=== PATIENT | female | born 1980 | race Caucasian/White ===

== ENCOUNTER 2017-04-01 12:46 | Emergency (ER) | payer BC, OTHER ==
[2017-04-01 12:57] VITALS: RESP 18; TEMP 99; O2SAT 99
[2017-04-01] MEDS ORDERED: Sodium Chloride 0.9% 1,000 ML IV STA (13:31)
[2017-04-01 14:01] LABS: BASO % 0.8 % (0.0-2.0); EOS # 0.1 K/uL (0.0-0.7); EOS % 1.8 % (0.0-4.0); HEMOGLOBIN 12.3 g/dL (12.0-16.0); LYMPH # 1.8 K/uL (1.0-4.3); LYMPH % 35.3 % (20.0-40.0); MEAN CELL VOLUME 88.6 fl (81.0-99.0); MEAN CORPUSCULAR HEMOGLOBIN 29.7 pg (27.0-31.0); MEAN CORPUSCULAR HGB CONC 33.5 g/dL (33.0-37.0); MEAN PLATELET VOLUME 8.5 fl (7.2-11.7); MONO # 0.3 K/uL (0.0-0.8); MONO % 6.8 % (0.0-10.0); NEUT # 2.8 K/uL (1.8-7.0); NEUT % 55.3 % (50.0-75.0); NRBC % 0.3 % (0.0-0.0); RBC 4.15 Mil/uL (3.80-5.20); RED CELL DISTRIBUTION WIDTH 13.5 % (11.5-14.5); WHITE BLOOD COUNT 5.1 K/uL (4.8-10.8)
--- NOTE | 2017-04-01 14:02 | ED PDOC ---
HPI: Chest Pain Time Seen by Provider: 04/01/17 13:12 Chief Complaint (Nursing): Chest Pain Chief Complaint (Provider): left sided chest pain History Per: Patient History/Exam Limitations: no limitations Onset/Duration Of Symptoms: Days (x 3) Additional Complaint(s): Ade Trejo is a 36 year old female, with a previous medical history of hypercholesterolemia, who presents to the ED with complaints of left sided chest pain associated with dyspnea, lightheadedness and pain with deep inspiration constantly ongoing for 3 days. She denies any calf pain, leg swelling, far traveling or hormone treatments. No fever, cough, runny nose, headaches. No vision changes. Has had similar multiple times in the past. PMD: none provided Past Medical History Reviewed: Historical Data, Nursing Documentation, Vital Signs Vital Signs: Last Vital Signs Temp 99 F 04/01/17 12:55 Pulse 80 04/01/17 12:55 Resp 18 04/01/17 12:55 BP 114/68 04/01/17 12:55 Pulse Ox 99 04/01/17 14:06 - Medical History PMH: Hypercholesterolemia Denies: Chronic Kidney Disease - Family History Family History: States: Unknown Family Hx - Living Arrangements Living Arrangements: With Family - Social History Current smoker - smoking cessation education provided: No Alcohol: None Drugs: Denies - Home Medications Home Medications: Ambulatory Orders Medication Instructions Recorded Ciprofloxacin [Cipro] 500 mg PO BID #20 06/19/14 Metronidazole [Flagyl] 500 mg PO TID #30 tab 06/19/14 Ibuprofen [Motrin] 600 mg PO TID 7 Days 04/01/17 - Allergies Allergies/Adverse Reactions: Allergies Allergy/AdvReac Type Severity Reaction Status Date / Time iodine Allergy RASH Verified 04/01/17 12:55 Penicillins Allergy RASH Verified 04/01/17 12:55 Review of Systems ROS Statement: Except As Marked, All Systems Reviewed And Found Negative Cardiovascular: Positive for: Chest Pain (left sided ) Respiratory: Positive for: Shortness of Breath, Other (dyspnea ) Neurological: Positive for: Dizziness Physical Exam - Reviewed Nursing Documentation Reviewed: Yes Vital Signs Reviewed: Yes - Physical Exam Appears: Positive for: Non-toxic, No Acute Distress Head Exam: Positive for: ATRAUMATIC, NORMAL INSPECTION, NORMOCEPHALIC Skin: Positive for: Normal Color, Warm, DRY Eye Exam: Positive for: EOMI, Normal appearance, PERRL ENT: Positive for: Normal ENT Inspection Neck: Positive for: Normal, Painless ROM, Supple Cardiovascular/Chest: Positive for: Regular Rate, Rhythm. Negative for: Chest Non Tender (upper left sided tenderness), Edema Respiratory: Positive for: Normal Breath Sounds. Negative for: Decreased Breath Sounds, Accessory Muscle Use, Wheezing Gastrointestinal/Abdominal: Positive for: Normal Exam, Bowel Sounds, Soft. Negative for: Tenderness Back: Positive for: Normal Inspection. Negative for: L CVA Tenderness, R CVA Tenderness Extremity: Positive for: Normal ROM. Negative for: Tenderness, Pedal Edema Neurologic/Psych: Positive for: Alert, hogshead cooper II-XII, Oriented. Negative for: Motor/Sensory Deficits - Laboratory Results Result Diagrams: 04/01/17 13:50 04/01/17 13:50 Interpretation Of Abn Labs: no acute - ECG ECG: Positive for: Interpreted By Me, Viewed By Me ECG Rhythm: Positive for: Normal QRS, Normal ST Segment, Sinus Rhythm O2 Sat by Pulse Oximetry: 99 (RA) Pulse Ox Interpretation: Normal - Radiology X-Ray: Interpreted by Me, Viewed By Me X-Ray Interpretation: No Acute Disease - Progress ED Course And Treament: 1533: Stable. AAOx3. Pain free. Tolerated PO. Walking with no issues. Medical Decision Making Medical Decision Making: Initial Impression: chest pain evaluation Initial Plan: * EKG * Labs * Troponin I * urine * D-dimer * PTT * PT * CXR * IV NS 1,000 ml at 1,000 ml/hr * toradol 15 mg IV * reevaluation Scribe Attestation: Documented by Dora Martin, acting as a scribe for Randall Corona MD. Provider Scribe Attestation: All medical record entries made by the Scribe were at my direction and personally dictated by me. I have reviewed the chart and agree that the record accurately reflects my personal performance of the history, physical exam, medical decision making, and the department course for this patient. I have also personally directed, reviewed, and agree with the discharge instructions and disposition. Disposition - Clinical Impression Clinical Impression: Chest pain, Dizziness - Patient ED Disposition Is Patient to be Admitted: No Counseled Patient/Family Regarding: Studies Performed, Diagnosis, Need For Followup, Rx Given - Disposition Referrals: [facility] [Outside] - 04/02/17 Disposition: Routine/Home Disposition Time: 15:35 Condition: STABLE Additional Instructions: Return if not better in 3 days. Prescriptions: Ibuprofen [Motrin] 600 mg PO TID 7 Days Instructions: Chest Pain (ED), Dizziness (ED) Print Language: K[place]HILI
[2017-04-01 14:14] LABS: ALB/GLOB RATIO 1.3 (1.0-2.1); ALBUMIN 4.3 g/dL (3.5-5.0); ALT/SGPT 33 U/L (9-52); AST/SGOT 19 U/L (14-36); BLOOD UREA NITROGEN 8 mg/dl (7-17); CALCIUM 8.6 mg/dL (8.4-10.2); GFR AFRICAN-AMERICAN > 60; GFR NON-AFRICAN AMERICAN > 60
[2017-04-01 14:52] LABS: INR 1.1 (0.9-1.2); PROTHROMBIN TIME 11.9 Seconds (9.8-13.1)
--- NOTE | 2017-04-01 15:32 | RAD ---
HISTORY: dyspnea COMPARISON: None available. TECHNIQUE: Chest, one view. FINDINGS: Examination limited by habitus. LUNGS: No focal consolidation. Please note that chest x-ray has limited sensitivity for the detection of pulmonary masses. PLEURA: No significant pleural effusion identified. No definite pneumothorax . CARDIOVASCULAR: The cardiomediastinal silhouette appears within normal limits of size. OSSEOUS STRUCTURES: No acute osseous abnormality identified. VISUALIZED UPPER ABDOMEN: Unremarkable. OTHER FINDINGS: None. IMPRESSION: No focal consolidation, significant pleural effusion, or definite pneumothorax identified.
[2017-04-01 16:02] VITALS: BP 108/58; PULSE 74
--- NOTE | 2017-04-02 11:37 | CARD ---
APPROVED REPORT EKG Measurement Heart [id number] <Conclusion> Normal sinus rhythm Normal ECG
== END 2017-04-01 15:45 | disposition home or self-care (01) ==
LOC: H.ER 12:46
DX: R07.89 Other chest pain (principal); R42 Dizziness and giddiness; E78.00 Pure hypercholesterolemia, unspecified; Z88.0 Allergy status to penicillin
CPT/HCPCS: 71010; 80053; 81025; 84484; 85025; 85378; 85610; 85730; 93005; 96374; 99283; J1885; J7040

== ENCOUNTER 2017-10-23 07:40 | Emergency (ER) | payer BC ==
[2017-10-23 08:04] VITALS: BP 107/59; PULSE 88; RESP 18; TEMP 97.1; O2SAT 96
[2017-10-23] MEDS ORDERED: Sodium Chloride 0.9% 1,000 ML IV STA (08:27)
--- NOTE | 2017-10-23 08:35 | ED PDOC ---
HPI: Abdomen Time Seen by Provider: 10/23/17 08:15 Chief Complaint (Nursing): GI Problem Chief Complaint (Provider): GI problem History Per: Patient History/Exam Limitations: no limitations Onset/Duration Of Symptoms: Days (x1) Outside of [place] travel?: No Current Symptoms Are (Timing): Still Present Location Of Pain/Discomfort: Epigastric Quality Of Discomfort: "Pain" Associated Symptoms: Nausea, Vomiting, Diarrhea. denies: Fever Additional Complaint(s): Ade Trejo is a 37 year old female, with a past medical history of gastritis, who presents to the emergency department complaining of epigastric pain associated with nausea, vomiting and diarrhea onset since last night. Patient came to the ER with her daughter and 2 sons, all presenting with the same symptoms. Patient states it started with a relative x2 days ago. No recent travel outside the country. She denies any fever, or bleeding. No further medical complaints. PMD: Sylvester Faustin Past Medical History Reviewed: Historical Data, Nursing Documentation, Vital Signs Vital Signs: Last Vital Signs Temp 97.1 F L 10/23/17 08:02 Pulse 88 10/23/17 08:02 Resp 18 10/23/17 08:02 BP 107/59 L 10/23/17 08:02 Pulse Ox 96 10/23/17 08:38 - Medical History PMH: Gastritis, Hypercholesterolemia Denies: Chronic Kidney Disease - Surgical History Surgical History: No Surg Hx - Family History Family History: States: Unknown Family Hx - Social History Ex-Smoker (has not smoked in the last 12 months): No Alcohol: None Drugs: Denies - Home Medications Home Medications: Ambulatory Orders Medication Instructions Recorded Ciprofloxacin [Cipro] 500 mg PO BID #20 06/19/14 Metronidazole [Flagyl] 500 mg PO TID #30 tab 06/19/14 Ibuprofen [Motrin] 600 mg PO TID 7 Days tab 04/01/17 Famotidine [Pepcid] 20 mg PO Q12 #20 tab 10/23/17 Ondansetron [Zofran] 4 mg PO Q8H #10 tab 10/23/17 - Allergies Allergies/Adverse Reactions: Allergies Allergy/AdvReac Type Severity Reaction Status Date / Time iodine Allergy RASH Verified 10/23/17 08:01 Penicillins Allergy RASH Verified 10/23/17 08:01 Review of Systems ROS Statement: Except As Marked, All Systems Reviewed And Found Negative Constitutional: Negative for: Fever Gastrointestinal: Positive for: Nausea, Vomiting, Abdominal Pain (epigastric), Diarrhea Physical Exam - Reviewed Nursing Documentation Reviewed: Yes Vital Signs Reviewed: Yes - Physical Exam Appears: Positive for: Non-toxic Head Exam: Positive for: ATRAUMATIC, NORMAL INSPECTION, NORMOCEPHALIC Skin: Positive for: Normal Color, Warm, Dry Eye Exam: Positive for: Normal appearance ENT: Positive for: Other (mucous membrane dry) Neck: Positive for: Painless ROM, Supple Cardiovascular/Chest: Positive for: Regular Rate, Rhythm. Negative for: Murmur Respiratory: Positive for: Normal Breath Sounds (clear b/l). Negative for: Respiratory Distress Gastrointestinal/Abdominal: Positive for: Tenderness (epigastric). Negative for : Guarding, Rebound Extremity: Positive for: Normal ROM. Negative for: Deformity, Swelling Neurologic/Psych: Positive for: Alert, Oriented - Laboratory Results Result Diagrams: 10/23/17 08:49 10/23/17 08:49 - ECG O2 Sat by Pulse Oximetry: 96 (RA) Pulse Ox Interpretation: Normal Medical Decision Making Medical Decision Making: Initial Plan: --Comp Metabolic Panel --Urine --CBC w/ differential --Pepcid 20 mg IVP --Sodium Chloride 1,000 ml IV 200 mls/hr --Zofran Inj 4mg IVP --reevaluation Scribe Attestation: Documented by Gurpreet Alcocer, acting as a scribe for Oscar Zhou MD Provider Scribe Attestation: All medical record entries made by the Scribe were at my direction and personally dictated by me. I have reviewed the chart and agree that the record accurately reflects my personal performance of the history, physical exam, medical decision making, and the department course for this patient. I have also personally directed, reviewed, and agree with the discharge instructions and disposition. Disposition - Clinical Impression Clinical Impression: Gastroenteritis - Patient ED Disposition Is Patient to be Admitted: No Counseled Patient/Family Regarding: Studies Performed, Diagnosis, Need For Followup, Rx Given - Disposition Referrals: [facility] [Outside] Disposition: Routine/Home Disposition Time: 10:01 Condition: FAIR Prescriptions: Famotidine [Pepcid] 20 mg PO Q12 #20 tab Ondansetron [Zofran] 4 mg PO Q8H #10 tab Instructions: Gastroenteritis (ED) Forms: [employer] ([place] Islander)
[2017-10-23 09:07] LABS: BASO % 0.2 % (0.0-2.0); EOS % 0.3 % (0.0-4.0); HEMOGLOBIN 12.5 g/dL (12.0-16.0); LYMPH # 0.6 K/uL (1.0-4.3); LYMPH % 5.4 % (20.0-40.0); MEAN CELL VOLUME 87.5 fl (81.0-99.0); MEAN CORPUSCULAR HEMOGLOBIN 28.4 pg (27.0-31.0); MEAN CORPUSCULAR HGB CONC 32.5 g/dL (33.0-37.0); MEAN PLATELET VOLUME 8.7 fl (7.2-11.7); MONO # 0.3 K/uL (0.0-0.8); MONO % 2.3 % (0.0-10.0); NEUT # 10.6 K/uL (1.8-7.0); NEUT % 91.8 % (50.0-75.0); NRBC % 0.1 % (0.0-0.0); PLATELET COUNT 222 K/uL (130-400); RED CELL DISTRIBUTION WIDTH 13.8 % (11.5-14.5); WHITE BLOOD COUNT 11.5 K/uL (4.8-10.8)
[2017-10-23 09:16] LABS: ALB/GLOB RATIO 1.2 (1.0-2.1); ALBUMIN 4.3 g/dL (3.5-5.0); ALT/SGPT 38 U/L (9-52); AST/SGOT 23 U/L (14-36); BLOOD UREA NITROGEN 12 mg/dl (7-17); CALCIUM 8.3 mg/dL (8.4-10.2); GFR AFRICAN-AMERICAN > 60; GFR NON-AFRICAN AMERICAN > 60
[2017-10-23 10:43] LABS: ANISOCYTOSIS SLIGHT; LARGE PLATELETS PRESENT; LYMPHOCYTE 9 % (20-50); MONOCYTE 4 % (0-10); NEUTROPHIL 87 % (42-75); OVALOCYTES SLIGHT; PLATELET ESTIMATE NORMAL (NORMAL); TEARDROP CELLS SLIGHT; TOTAL CELLS COUNTED 100
== END 2017-10-23 10:45 | disposition home or self-care (01) ==
LOC: H.ER 07:40
DX: K52.9 Noninfective gastroenteritis and colitis, unspecified (principal); E78.00 Pure hypercholesterolemia, unspecified; Z88.0 Allergy status to penicillin
CPT/HCPCS: 80053; 81025; 85025; 96374; 96375; 99285; J2405; J7040

== ENCOUNTER 2017-12-21 11:21 | Emergency (ER) | payer BC ==
[2017-12-21 11:50] VITALS: RESP 18
[2017-12-21 13:53] LABS: BASO % 0.7 % (0.0-2.0); EOS # 0.1 K/uL (0.0-0.7); EOS % 0.9 % (0.0-4.0); HEMOGLOBIN 12.1 g/dL (12.0-16.0); LYMPH # 2.3 K/uL (1.0-4.3); LYMPH % 37.3 % (20.0-40.0); MEAN CELL VOLUME 86.9 fl (81.0-99.0); MEAN CORPUSCULAR HGB CONC 33.3 g/dL (33.0-37.0); MEAN PLATELET VOLUME 8.1 fl (7.2-11.7); MONO # 0.4 K/uL (0.0-0.8); MONO % 6.2 % (0.0-10.0); NEUT # 3.4 K/uL (1.8-7.0); NEUT % 54.9 % (50.0-75.0); NRBC % 0.1 % (0.0-0.0); RBC 4.18 Mil/uL (3.80-5.20); RED CELL DISTRIBUTION WIDTH 13.8 % (11.5-14.5); WHITE BLOOD COUNT 6.2 K/uL (4.8-10.8)
[2017-12-21 14:41] LABS: ALB/GLOB RATIO 1.1 (1.0-2.1); ALBUMIN 3.9 g/dL (3.5-5.0); ALT/SGPT 47 U/L (9-52); AST/SGOT 54 U/L (14-36); BLOOD UREA NITROGEN 10 mg/dl (7-17); CALCIUM 8.5 mg/dL (8.4-10.2); GFR AFRICAN-AMERICAN > 60; GFR NON-AFRICAN AMERICAN > 60
--- NOTE | 2017-12-21 15:13 | RAD ---
PROCEDURE: Radiographs of the Left Shoulder HISTORY: L shoulder and chest pain COMPARISON: No prior. FINDINGS: BONES: Normal. No fracture. JOINTS: Normal. Glenohumeral and acromioclavicular joints preserved. No osteoarthritis. SOFT TISSUES: Normal. OTHER FINDINGS: None. IMPRESSION: Normal radiographs of the left shoulder.
[2017-12-21 15:48] VITALS: BP 115/67; TEMP 97.8; O2SAT 100
--- NOTE | 2017-12-21 16:20 | RAD ---
HISTORY: L shoulder and chest pain COMPARISON: Comparison chest 04/01/2017 TECHNIQUE: Chest PA and lateral FINDINGS: LUNGS: No active pulmonary disease. PLEURA: No significant pleural effusion identified. No pneumothorax apparent. CARDIOVASCULAR: Normal. OSSEOUS STRUCTURES: No significant abnormalities. VISUALIZED UPPER ABDOMEN: Normal. OTHER FINDINGS: None. IMPRESSION: No active disease.
--- NOTE | 2018-01-14 13:38 | ED PDOC ---
HPI: Chest Pain Time Seen by Provider: 12/21/17 11:41 Chief Complaint (Nursing): Chest Pain Chief Complaint (Provider): chest pain History Per: Patient Current Symptoms Are (Timing): Intermittent Episodes Modifying Factors: None Exacerbating Factors: None Additional Complaint(s): 37yo female c/o chest pain radiating to shoulder/back, worse w/ deep breath or inspiration. States thinks exacerbated by working with upper extremities. Denies SOB, syncope, fever or history cardiac problems. Past Medical History Reviewed: Historical Data, Nursing Documentation, Vital Signs Vital Signs: Last Vital Signs Temp 97.8 F 12/21/17 15:47 Pulse 76 12/21/17 15:47 Resp 18 12/21/17 15:47 BP 115/67 12/21/17 15:47 Pulse Ox 100 12/21/17 15:47 - Medical History PMH: Gastritis, Hypercholesterolemia Denies: Chronic Kidney Disease - Family History Family History: States: Unknown Family Hx - Home Medications Home Medications: Ambulatory Orders Medication Instructions Recorded Ciprofloxacin [Cipro] 500 mg PO BID #20 06/19/14 Metronidazole [Flagyl] 500 mg PO TID #30 tab 06/19/14 Ibuprofen [Motrin] 600 mg PO TID 7 Days tab 04/01/17 Famotidine [Pepcid] 20 mg PO Q12 #20 tab 10/23/17 Ondansetron [Zofran] 4 mg PO Q8H #10 tab 10/23/17 Celecoxib [Celebrex] 50 mg PO DAILY PRN #10 cap 12/21/17 Ranitidine HCl [Zantac] 150 mg PO BID #20 tablet 12/21/17 - Allergies Allergies/Adverse Reactions: Allergies Allergy/AdvReac Type Severity Reaction Status Date / Time iodine Allergy RASH Verified 12/21/17 11:46 Penicillins Allergy RASH Verified 12/21/17 11:46 Review of Systems Constitutional: Negative for: Fever Cardiovascular: Positive for: Chest Pain. Negative for: Palpitations Gastrointestinal: Negative for: Abdominal Pain Genitourinary Female: Negative for: Dysuria Musculoskeletal: Positive for: Shoulder Pain, Back Pain. Negative for: Neck Pain, Arm Pain Skin: Negative for: Rash, Lesions Neurological: Negative for: Weakness, Numbness, Headache, Dizziness Physical Exam - Reviewed Nursing Documentation Reviewed: Yes Vital Signs Reviewed: Yes - Physical Exam Appears: Positive for: Well, Non-toxic, No Acute Distress Head Exam: Positive for: ATRAUMATIC, NORMAL INSPECTION, NORMOCEPHALIC Skin: Positive for: Normal Color, Warm, DRY Eye Exam: Positive for: EOMI, Normal appearance, PERRL ENT: Positive for: Normal ENT Inspection Neck: Positive for: Normal, Painless ROM Cardiovascular/Chest: Positive for: Regular Rate, Rhythm, Other (mild tenderness L chest wall) Respiratory: Positive for: Normal Breath Sounds. Negative for: Respiratory Distress Gastrointestinal/Abdominal: Positive for: Soft. Negative for: Tenderness Extremity: Negative for: Swelling Neurologic/Psych: Positive for: Alert, Oriented. Negative for: Motor/Sensory Deficits - Laboratory Results Result Diagrams: 12/21/17 13:45 12/21/17 14:15 - ECG ECG: Positive for: Interpreted By Me ECG Rhythm: Positive for: Normal QRS, Normal ST Segment, Sinus Rhythm Rate: 71 O2 Sat by Pulse Oximetry: 100 Pulse Ox Interpretation: Normal - Radiology X-Ray: Read By Radiologist X-Ray Interpretation: No Acute Disease - Other Rad shoulder XR X-Ray: Read By Radiologist (negative) Medical Decision Making Medical Decision Making: Heart Score 0 labs reviewed and unremarkable pain appears musculoskeletal in origin at this time improved in ED w conservative therapy Stable for outpatient workup at time of discharge Disposition - Clinical Impression Clinical Impression: Shoulder pain, acute, Chest wall pain - Patient ED Disposition Is Patient to be Admitted: No Counseled Patient/Family Regarding: Studies Performed - Disposition Referrals: Judd Burrows III, MD [Staff Provider] - Disposition: Routine/Home Disposition Time: 15:30 Condition: STABLE Additional Instructions: See your doctor for further testing or referral to orthopedics. Return to ER for any worse or new symptoms. Wear sling for 3 days only. Take medications as needed, caution with history of gastric ulcer. Continue antiacid medication daily. Prescriptions: Celecoxib [Celebrex] 50 mg PO DAILY PRN #10 cap PRN Reason: Pain, Severe (8-10) Ranitidine HCl [Zantac] 150 mg PO BID #20 tablet Instructions: Shoulder Sprain, Rotator Cuff Injury, Chest Pain That Is Not Caused by the Heart (DC), Shoulder Sprain (DC) Forms: [employer] ([place]oz[place]ican), [facility] School/Work Excuse Print Language: FRENCH
[2018-01-14 13:41] VITALS: PULSE 71
== END 2017-12-21 15:48 | disposition home or self-care (01) ==
LOC: H.ER 11:21
DX: R07.9 Chest pain, unspecified (principal); M25.512 Pain in left shoulder; R07.89 Other chest pain; Z88.0 Allergy status to penicillin; E78.00 Pure hypercholesterolemia, unspecified
CPT/HCPCS: 71046; 73030; 80053; 81025; 84484; 85025; 96372; 99283; J1885

== ENCOUNTER 2018-04-03 15:05 | Emergency (ER) | payer BC ==
[2018-04-03 15:16] VITALS: BP 109/67; PULSE 85; RESP 16; TEMP 98.2; O2SAT 99
--- NOTE | 2018-04-03 15:50 | ED PDOC ---
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 Denies fever, cough, SOB, palpitations. Past Medical History Reviewed: Nursing Documentation, Vital Signs Vital Signs: Last Vital Signs Temp 98.2 F 04/03/18 15:14 Pulse 85 04/03/18 15:14 Resp 16 04/03/18 15:14 BP 109/67 04/03/18 15:14 Pulse Ox 99 04/08/18 12:32 - Medical History PMH: Gastritis, Hypercholesterolemia Denies: Chronic Kidney Disease - Family History Family History: States: Unknown Family Hx - Living Arrangements Living Arrangements: With Family - Social History Current smoker - smoking cessation education provided: No Alcohol: None - Home Medications Home Medications: Ambulatory Orders Medication Instructions Recorded Ciprofloxacin [Cipro] 500 mg PO BID #20 06/19/14 Metronidazole [Flagyl] 500 mg PO TID #30 tab 06/19/14 Ibuprofen [Motrin] 600 mg PO TID 7 Days tab 04/01/17 Famotidine [Pepcid] 20 mg PO Q12 #20 tab 10/23/17 Ondansetron [Zofran] 4 mg PO Q8H #10 tab 10/23/17 Celecoxib [Celebrex] 50 mg PO DAILY PRN #10 cap 12/21/17 Ranitidine HCl [Zantac] 150 mg PO BID #20 tablet 12/21/17 Naproxen [Naprosyn] 500 mg PO BID PRN #15 tablet 04/03/18 - Allergies Allergies/Adverse Reactions: Allergies Allergy/AdvReac Type Severity Reaction Status Date / Time iodine Allergy RASH Verified 12/21/17 11:46 Penicillins Allergy RASH Verified 12/21/17 11:46 DHARMESH Risk Score for UA/NSTEMI - DHARMESH Risk Score Age > 64: NO 3 or more CAD Risk Factors: NO Known CAD (Stenosis greater than 50%): NO Aspirin use in past 7 days: NO Severe Angina: NO EKG ST changes greater than 0.5mm: NO Positive Cardiac Marker: NO DHARMESH Score: 0 Risk %: 5% Wells Criteria for PE - Wells Criteria for Pulmonary Embolism Clinical Signs and Symptoms of DVT: No P.E is #1 Diagnosis, or Equally Likely: No Heart Rate >100: No Immobilization at least 3 days;Surgery previous 4 weeks: No Previous, objectively diagnosed PE or DVT: No Hemoptysis: No Malignancy w/treatment within 6 months, or palliative: No Total Score: 0 Review of Systems Constitutional: Negative for: Fever, Chills Cardiovascular: Positive for: Chest Pain. Negative for: Palpitations Respiratory: Positive for: Pleuritic Pain. Negative for: Cough, Shortness of Breath, SOB with Exertion, Sputum Gastrointestinal: Negative for: Nausea, Vomiting, Abdominal Pain, Diarrhea Musculoskeletal: Negative for: Neck Pain, Back Pain Skin: Negative for: Rash, Lesions Neurological: Negative for: Headache, Dizziness Physical Exam - Reviewed Nursing Documentation Reviewed: Yes Vital Signs Reviewed: Yes - Physical Exam Appears: Positive for: Well, No Acute Distress Head Exam: Positive for: ATRAUMATIC, NORMAL INSPECTION Skin: Positive for: Normal Color, Warm, Dry Eye Exam: Positive for: Normal appearance, EOMI, PERRL Cardiovascular/Chest: Positive for: Regular Rate, Rhythm. Negative for: Chest Non Tender (TTP L chest wall) Respiratory: Positive for: Normal Breath Sounds. Negative for: Rales, Rhonchi, Wheezing Extremity: Positive for: Normal ROM. Negative for: Tenderness, Pedal Edema, Calf Tenderness, Capillary Refill, Deformity, Swelling Neurologic/Psych: Positive for: Alert, psychologist counseling II-XII, Oriented - Laboratory Results Result Diagrams: 04/03/18 15:55 04/03/18 15:55 - ECG Interpretation Of ECG: NSR @ 88, prolonged QT, no ST-T changes. O2 Sat by Pulse Oximetry: 99 Pulse Ox Interpretation: Normal - Radiology X-Ray: Interpreted by Vt X-Ray Interpretation: No Acute Disease Medical Decision Making Medical Decision Makin yo female with chest pain. - labs - EKG - CXR - Motrin Disposition - Clinical Impression Clinical Impression: Atypical chest pain - Disposition Disposition: Routine/Home Disposition Time: 17:30 Condition: STABLE Additional Instructions: FOLLOW-UP WITH PMD WITHIN 2 DAYS FOR REEVALUATION> Prescriptions: Naproxen [Naprosyn] 500 mg PO BID PRN #15 tablet PRN Reason: Pain, Moderate (4-7) Instructions: Pleuritic Chest Pain, Chest Pain Forms: [employer] (Polish) Print Language: NIGERIAN
[2018-04-03 16:10] LABS: BASO % 0.4 % (0.0-2.0); EOS # 0.1 K/uL (0.0-0.7); EOS % 0.9 % (0.0-4.0); HEMOGLOBIN 12.4 g/dL (12.0-16.0); LYMPH # 1.9 K/uL (1.0-4.3); LYMPH % 27.5 % (20.0-40.0); MEAN CELL VOLUME 87.5 fl (81.0-99.0); MEAN CORPUSCULAR HEMOGLOBIN 29.3 pg (27.0-31.0); MEAN CORPUSCULAR HGB CONC 33.5 g/dL (33.0-37.0); MONO # 0.5 K/uL (0.0-0.8); NEUT # 4.4 K/uL (1.8-7.0); NEUT % 64.2 % (50.0-75.0); NRBC % 0.1 % (0.0-0.0); RBC 4.23 Mil/uL (3.80-5.20); RED CELL DISTRIBUTION WIDTH 13.6 % (11.5-14.5); WHITE BLOOD COUNT 6.9 K/uL (4.8-10.8)
[2018-04-03 16:15] LABS: ALB/GLOB RATIO 1.3 (1.0-2.1); ALBUMIN 4.3 g/dL (3.5-5.0); ALT/SGPT 37 U/L (9-52); AST/SGOT 24 U/L (14-36); BLOOD UREA NITROGEN 13 mg/dl (7-17); CALCIUM 8.5 mg/dL (8.4-10.2); GFR AFRICAN-AMERICAN > 60; GFR NON-AFRICAN AMERICAN > 60
[2018-04-03] MEDS ORDERED: Potassium Chloride 20 mEq ER Tab PO STA (16:21)
[2018-04-03 16:28] LABS: PROTHROMBIN TIME 12.2 Seconds (9.8-13.1)
[2018-04-03 16:29] LABS: INR 1.1 (0.9-1.2)
[2018-04-03 16:30] LABS: PARTIAL THROMBOPLASTIN TIME 31.3 Seconds (25.6-37.1)
[2018-04-03] MEDS ORDERED: Potassium Chloride 20 mEq ER Tab PO ONE (16:32)
--- NOTE | 2018-04-04 07:47 | RAD ---
HISTORY: CP COMPARISON: No prior. TECHNIQUE: Chest PA and lateral FINDINGS: LUNGS: No active pulmonary disease. PLEURA: No significant pleural effusion identified. No pneumothorax apparent. CARDIOVASCULAR: Normal. OSSEOUS STRUCTURES: No significant abnormalities. VISUALIZED UPPER ABDOMEN: Normal. OTHER FINDINGS: None. IMPRESSION: No active disease.
--- NOTE | 2018-04-04 10:05 | CARD ---
APPROVED REPORT EKG Measurement Heart [id number] <Conclusion> Normal sinus rhythm Prolonged QT Abnormal ECG
== END 2018-04-03 17:33 | disposition home or self-care (01) ==
LOC: H.ER 15:05
DX: R07.89 Other chest pain (principal); E78.00 Pure hypercholesterolemia, unspecified; Z88.0 Allergy status to penicillin
CPT/HCPCS: 71046; 80053; 81025; 84484; 85025; 85378; 85610; 85730; 93005; 96374; 99283; J2405

== ENCOUNTER 2018-09-09 12:43 | Emergency (ER) | payer BC ==
[2018-09-09 12:46] VITALS: BP 110/60; PULSE 77; RESP 16; TEMP 98; O2SAT 100
--- NOTE | 2018-09-09 13:24 | ED PDOC ---
Upper Extremity Pain/Injury Time Seen by Provider: 09/09/18 12:54 Chief Complaint (Nursing): Upper Extremity Problem/Injury Chief Complaint (Provider): Left Shoulder Pain History Per: Patient History/Exam Limitations: no limitations Onset/Duration Of Symptoms: Other (chronic since February) Current Symptoms Are (Timing): Still Present Additional Complaint(s): 38 year old right hand dominant female, 12 weeks , presents to the ED for evaluation of left shoulder pain that has been ongoing since February 2018. Patient reports that she was initially seen by her PMD who diagnosed her with muscle pain and told her to follow up with a specialist, but she failed to do so. Patient denies fever, chills, abdominal pain or vaginal bleeding at this time. Patient states that when she takes a deep breath she has pain. [employer]: in [place] PMD: Sandrine Garcia Past Medical History Reviewed: Historical Data, Nursing Documentation, Vital Signs Vital Signs: Last Vital Signs Temp 98.0 F 09/09/18 12:44 Pulse 77 09/09/18 12:44 Resp 16 09/09/18 12:44 BP 110/60 09/09/18 12:44 Pulse Ox 100 09/09/18 12:44 - Medical History PMH: Gastritis, Hypercholesterolemia - Surgical History Surgical History: No Surg Hx - Family History Family History: States: No Known Family Hx - Living Arrangements Living Arrangements: With Family - Social History Current smoker - smoking cessation education provided: No Alcohol: None Drugs: Denies - Home Medications Home Medications: Ambulatory Orders Medication Instructions Recorded Ciprofloxacin [Cipro] 500 mg PO BID #20 06/19/14 Metronidazole [Flagyl] 500 mg PO TID #30 tab 06/19/14 Ibuprofen [Motrin] 600 mg PO TID 7 Days tab 04/01/17 Famotidine [Pepcid] 20 mg PO Q12 #20 tab 10/23/17 Ondansetron [Zofran] 4 mg PO Q8H #10 tab 10/23/17 Celecoxib [Celebrex] 50 mg PO DAILY PRN #10 cap 12/21/17 Ranitidine HCl [Zantac] 150 mg PO BID #20 tablet 12/21/17 Naproxen [Naprosyn] 500 mg PO BID PRN #15 tablet 04/03/18 Acetaminophen [Tylenol 325mg tab] 650 mg PO Q4 PRN #200 cap 09/09/18 - Allergies Allergies/Adverse Reactions: Allergies Allergy/AdvReac Type Severity Reaction Status Date / Time iodine Allergy RASH Verified 09/09/18 12:44 Penicillins Allergy RASH Verified 09/09/18 12:44 Review of Systems ROS Statement: Except As Marked, All Systems Reviewed And Found Negative Constitutional: Negative for: Fever Cardiovascular: Negative for: Chest Pain Respiratory: Negative for: Cough, Shortness of Breath Gastrointestinal: Negative for: Nausea, Vomiting, Abdominal Pain Genitourinary Female: Negative for: Dysuria, Frequency, Vaginal Discharge, Vaginal Bleeding, Pelvic Pain Musculoskeletal: Positive for: Shoulder Pain (left) Neurological: Negative for: Weakness, Numbness, Incoordination, Change in Speech, Altered Mental Status Physical Exam - Reviewed Nursing Documentation Reviewed: Yes Vital Signs Reviewed: Yes - Physical Exam Appears: Positive for: Well, Non-toxic, No Acute Distress Head Exam: Positive for: ATRAUMATIC, NORMOCEPHALIC Skin: Positive for: Normal Color. Negative for: Rash Eye Exam: Positive for: Normal appearance Neck: Positive for: Normal, Painless ROM Cardiovascular/Chest: Positive for: Regular Rate, Rhythm Respiratory: Positive for: Normal Breath Sounds. Negative for: Respiratory Distress Gastrointestinal/Abdominal: Positive for: Soft. 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 Negative for: Normal ROM (decreased ROM to left shoulder) Neurologic/Psych: Positive for: Alert, Oriented (x3) - Laboratory Results Urine dip results: Negative for: Leukocyte Esterase, Blood, Nitrate, Ketones, Glucose, Bilirubin, Protein - ECG O2 Sat by Pulse Oximetry: 100 (RA) Pulse Ox Interpretation: Normal Medical Decision Making Medical Decision Making: Time: 1325 Initial Impression: 38 year old female with chronic left shoulder pain Initial Plan: --Tylenol 975mg PO --Flexeril 10mg PO --U-dip 1330 Patient given rx tylenol for pain control and was instructed to follow up with PMD or OB for further eval. Scribe Attestation: Documented by Chantel Fuentes, acting as a scribe for Gina Rivers PA-C Provider Scribe Attestation: All medical record entries made by the Scribe were at my direction and personally dictated by me. I have reviewed the chart and agree that the record accurately reflects my personal performance of the history, physical exam, medical decision making, and the department course for this patient. I have also personally directed, reviewed, and agree with the discharge instructions and disposition. Disposition - Clinical Impression Clinical Impression: Shoulder pain - Patient ED Disposition Is Patient to be Admitted: No Counseled Patient/Family Regarding: Diagnosis, Need For Followup, Rx Given - Disposition [facility] Disposition: Routine/Home Disposition Time: 14:49 Condition: STABLE Additional Instructions: Take rx meds as directed as needed for pain. Follow up with primary care doctor for any persistent symptoms. Prescriptions: Acetaminophen [Tylenol 325mg tab] 650 mg PO Q4 PRN #200 cap PRN Reason: Pain, Moderate (4-7) Instructions: Shoulder Pain (DC) Forms: [employer] (Tajik) Print Language: BENGALI
== END 2018-09-09 14:58 | disposition home or self-care (01) ==
LOC: H.ER 12:43
DX: M25.512 Pain in left shoulder (principal); Z33.1 Pregnant state, incidental

== ENCOUNTER 2019-02-23 23:06 | Emergency (ER) | payer BC ==
[2019-02-23] MEDS ORDERED: Lactated Ringer's 1,000 ML IV SCH (23:45)
[2019-02-23 23:51] VITALS: BMI 32.6
[2019-02-24 01:05] LABS: ALBUMIN 3.5 g/dL (3.5-5.0); ALT/SGPT 20 U/L (9-52); AST/SGOT 34 U/L (14-36); BLOOD UREA NITROGEN 9 mg/dl (7-17); CALCIUM 8.3 mg/dL (8.4-10.2); GFR NON-AFRICAN AMERICAN > 60
[2019-02-24 01:06] LABS: SQUAMOUS EPITHIAL 1 /hpf (0-5); URINE BACTERIA OCC (<OCC); URINE BILIRUBIN NEGATIVE (NEGATIVE); URINE BLOOD NEGATIVE (NEGATIVE); URINE CLARITY SLIGHTY-CLOUDY (Clear); URINE COLOR YELLOW (YELLOW); URINE GLUCOSE (UA) NEG (NEGATIVE); URINE LEUKOCYTE ESTERASE SMALL Leu/uL (Negative); URINE PROTEIN NEGATIVE (NEGATIVE); URINE UROBILINOGEN 0.2-1.0 mg/dL (0.2-1.0)
[2019-02-24 01:09] LABS: BASO % 0.5 % (0.0-2.0); EOS # 0.1 K/uL (0.0-0.7); EOS % 1.2 % (0.0-4.0); HEMOGLOBIN 8.5 g/dL (12.0-16.0); LYMPH % 32.2 % (20.0-40.0); MEAN CELL VOLUME 75.8 fl (81.0-99.0); MEAN CORPUSCULAR HEMOGLOBIN 23.5 pg (27.0-31.0); MEAN PLATELET VOLUME 8.3 fl (7.2-11.7); MONO # 0.5 K/uL (0.0-0.8); MONO % 8.4 % (0.0-10.0); NEUT # 3.7 K/uL (1.8-7.0); NEUT % 57.7 % (50.0-75.0); NRBC % 2.9 % (0.0-0.0); RBC 3.62 Mil/uL (3.80-5.20); RED CELL DISTRIBUTION WIDTH 17.8 % (11.5-14.5); WHITE BLOOD COUNT 6.3 K/uL (4.8-10.8)
[2019-02-24 06:11] VITALS: BP 97/81; PULSE 96; TEMP 97.9
== END 2019-02-24 01:45 | disposition home or self-care (01) ==
LOC: H.EROB2 23:06
DX: O26.93 Pregnancy related conditions, unspecified, third trimester (principal); R10.2 Pelvic and perineal pain; O36.8131 Decreased fetal movements, third trimester, fetus 1
CPT/HCPCS: 80053; 81003; 85025; 99283; J7120